=== PATIENT | female | born 1965 | race Caucasian/White ===

== ENCOUNTER 2018-04-25 14:07 | Emergency (ER) | payer BC, OTHER ==
[~2018-04-25] VITALS: Ht 162.6 cm; Wt 57.6 kg
[~2018-04-25 14:07] MED LIST: BUPR150T5 PO; BUSPAR PO
--- NOTE | 2018-04-25 15:05 | NUR ---
Patient discharged to home in stable conditon. Written and verbal after care instructions given. Patient verbalizes understanding of instructions.
== END 2018-04-25 15:05 | disposition home or self-care (01) ==
LOC: ER 14:09
DX: H00.015 Hordeolum externum left lower eyelid (principal); Z90.49 Acquired absence of other specified parts of digestive tract
CPT/HCPCS: A4663